=== PATIENT | female | born 1945 | race Caucasian/White ===

== ENCOUNTER 2016-06-01 14:12 | Emergency (ER) | payer OTHER, MEDICARE ==
--- NOTE | 2016-06-01 14:30 | EDPHY ---
H & P HPI/ROS: HPI CHIEF COMPLAINT: Chest pressure, shortness of breath HISTORY OF PRESENT ILLNESS: This patient very pleasant 71-year-old female, she has received tired psychologist and her is a retired psychiatrist, she presents emergency room with 2-3 days of chest discomfort he describes this as a pressure sensation in the center of her chest. Patient tells me that she has started taking Celexa on Wednesday 10 mg she has had another dose on Wednesday she has not had a dose today she thought Celexa was making her feel fatigued, had palpitations and pressure in her chest. She does tell me she has a significant family history of coronary artery disease however her herself has never had a history of coronary artery disease in she tells me she had a normal cardiac catheterization approximately 3+ years ago. She went to urgent care today for an EKG and troponin however they referred her here to the emergency room if she is having active chest pressure. She also tells me she had some pain in her left arm. She is convinced that it is her Celexa. Currently upon arrival to the emergency room she appears well nontoxic no acute distress she does complain of chest pressure like something sitting on the middle of her chest Past Medical History: "traumatic CVA at age 20", seizures for which she takes gabapentin, hormone replacement, depression. Past Surgical History: Total hysterectomy due to uterine cancer Social History: Denies daily use of drugs alcohol tobacco products, lives locally, she works as a technical writer and editor, retired from Psychology, is a psychiatrist Family History: coronary artery disease with massive PR in her father at age ? 51 ROS REVIEW OF SYSTEMS: A comprehensive 10 point review of systems is otherwise negative aside from elements mentioned in the history of present illness. Exam Constitutional appears well nontoxic, triage nursing summary reviewed, vital signs reviewed, awake/alert. Eyes normal conjunctivae and sclera, EOMI, PERRLA. HENT normal inspection, atraumatic, moist mucus membranes, no epistaxis, neck supple/ no meningismus, no raccoon eyes. Respiratory clear to auscultation bilaterally, normal breath sounds, no respiratory distress, no wheezing. Cardiovascular rate normal, regular rhythm, no murmur, no edema, distal pulses normal. Gastrointestinal soft, non-tender, no rebound, no guarding, normal bowel sounds, no distension, no pulsatile mass. Genitourinary no CVA tenderness. Musculoskeletal no midline vertebral tenderness, full range of motion, no calf swelling, no tenderness of extremities, no meningismus, good pulses, neurovascularly intact. Skin pink, warm, & dry, no rash, skin atraumatic. Neurologic awake, alert and oriented x 3, AAOx3, moves all 4 extremities equally, motor intact, sensory intact, CN II-XII intact, normal cerebellar, normal vision, normal speech. Psychiatric normal mood/affect. Heme/Lymph/Immune no lymphadenopathy. Differential diagnosis includes but is not limited to: ACS, atypical chest pain , pneumothorax, pneumonia, pulmonary embolism, aortic dissection, congestive heart failure, tumor, musculoskeletal pain, esophageal pain, GERD, peptic ulcer disease, pancreatitis, medication at adverse effect from Celexa Medical Decision Making: this patient be placed on a full youth nutritional monitor, IV will be established, will have an EKG to rule out acute coronary syndrome, chest x-ray and blood work should be given nitroglycerin to see if this improves her chest pressure full-dose aspirin. Re-evaluation: EKG interpretation by me on record in [facility] system. Impression time of EKG 1505, this is sinus rhythm rate of 71. Specifically is no acute ischemic changes specifically no ST elevation, ST depression, T-wave abnormalities prolonged intervals. Unremarkable EKG. ED x-ray chest one view: negative for acute cardiopulmonary disease. Image interpreted by myself. 1618: re-evaluation at this time the patient is resting comfortably she declined nitroglycerin. Her vitals are stable. Troponin is negative, EKG is nonischemic. D-dimer negative. Chest x-ray reviewed shows nothing acute. Given patient's risk factors her age, and family history I will bring her into [facility] observation chest pain evaluation unit. She will need serial enzymes, serial EKG and plus or minus stress test. She is agreeable for this plan. I will speak with the hospitalist service to admit her. Dr. Virgen has agreed to admit the patient. Source: Patient - Personal History Tetanus Vaccine Date: UNKNOWN Constitutional: Initial Vital Signs Temperature (C) 36.6 C 06/01/16 15:00 Heart Rate 77 06/01/16 15:00 Respiratory Rate 16 06/01/16 15:00 Blood Pressure 127/101 H 06/01/16 15:00 O2 Sat (%) 94 06/01/16 15:00 O2 Delivery Mode Room Air Allergies/Adverse Reactions: levofloxacin [From Levaquin] Allergy (Verified 06/01/16 15:52) Penicillins Allergy (Verified 06/01/16 15:52) Quinolones Allergy (Verified 06/01/16 15:52) valproic acid Allergy (Verified 06/01/16 15:52) Home Medications: Medication Instructions Recorded Estradiol [Vivelle-Dot 0.05MG (*)] 0.05 mg TD MOTH@0800 03/08/13 Carboxymethylcellulose 0.5% 1 drops EACHEYE DAILY PRN 06/01/16 [Refresh Plus Drops 0.5%] Citalopram Hydrobromide [celeXA 10 10 mg PO DAILY 06/01/16 MG] Gabapentin [Neurontin] 1,200 mg PO HS #0 tablet 06/01/16 Gabapentin [Neurontin] 600 mg PO DAILY 06/01/16 Mineral Oil/Petrolatum,White 1 ju EACHEYE HS 06/01/16 [Refresh P.m. Ointment] Medical Decision Making - Data Points Laboratory Results: Laboratory Results 06/01/16 15:00 06/01/16 15:00 06/01/16 15:00 WBC 4.42 10^3/uL (3.80-9.50) RBC 4.41 10^6/uL (4.18-5.33) Hgb 13.4 g/dL (12.6-16.3) Hct 40.8 % (38.0-47.0) MCV 92.5 fL (81.5-99.8) MCH 30.4 pg (27.9-34.1) MCHC 32.8 g/dL (32.4-36.7) RDW 13.3 % (11.5-15.2) Plt Count 236 10^3/uL (150-400) MPV 9.6 fL (8.7-11.7) Neut % (Auto) 64.1 % (39.3-74.2) Lymph % (Auto) 25.6 % (15.0-45.0) [place] % (Auto) 8.1 % (4.5-13.0) Eos % (Auto) 1.1 % (0.6-7.6) Baso % (Auto) 0.9 % (0.3-1.7) Nucleat RBC Rel Count 0.0 % (0.0-0.2) Absolute Neuts (auto) 2.83 10^3/uL (1.70-6.50) Absolute Lymphs (auto) 1.13 10^3/uL (1.00-3.00) Absolute Monos (auto) 0.36 10^3/uL (0.30-0.80) Absolute Eos (auto) 0.05 10^3/uL (0.03-0.40) Absolute Basos (auto) 0.04 10^3/uL (0.02-0.10) Absolute Nucleated RBC 0.00 10^3/uL (0-0.01) Immature Gran % 0.2 % (0.0-1.1) Immature Gran # 0.01 10^3/uL (0.00-0.10) PT 13.6 SEC (12.0-15.0) INR 1.05 (0.83-1.16) APTT 31.0 SEC (23.0-38.0) D-Dimer < 0.27 ug/mLFEU (0.00-0.50) Sodium 141 mEq/L (134-144) Potassium 3.9 mEq/L (3.5-5.2) Chloride 102 mEq/L (97-110) Carbon Dioxide 28 mEq/l (22-31) Anion Gap 11 mEq/L (8-16) BUN 17 mg/dL (7-23) Creatinine 0.7 mg/dL (0.6-1.0) Estimated GFR > 60 Glucose 103 H mg/dL (70-100) Calcium 9.5 mg/dL (8.5-10.4) Magnesium 1.9 mg/dL (1.6-2.3) Total Bilirubin 0.7 mg/dL (0.1-1.4) Conjugated Bilirubin 0.5 mg/dL (0.0-0.5) Unconjugated Bilirubin 0.2 mg/dL (0.0-1.1) AST 25 IU/L (14-46) ALT 26 IU/L (9-52) Alkaline Phosphatase 47 IU/L (38-126) Creatine Kinase 25 IU/L (0-156) CK-MB (CK-2) Fraction 0.29 ng/mL (0-3.19) Troponin I < 0.012 ng/mL (0-0.034) NT-Pro-B Natriuret Pep 161 H pg/mL (0-125) Total Protein 6.9 g/dL (6.3-8.2) Albumin 3.9 g/dL (3.5-5.0) Lipase 229.0 IU/L (23-300) Medications Given: Discontinued Medications Aspirin (Aspirin) 324 mg PO EDNOW ONE Stop: 06/01/16 14:45 Last Admin: 06/01/16 15:47 Dose: 324 mg Sodium Chloride (Ns) 1,000 mls @ 0 mls/hr IV ONCE ONE PRN Reason: As Directed Stop: 06/01/16 14:45 Last Admin: 06/01/16 15:47 Dose: 1,000 mls Departure - Departure Disposition: [facility] Inpatient Acute Clinical Impression: Chest pain at rest Condition: Fair
[2016-06-01] MEDS ORDERED: NITROGLYCERIN 0.4 MG BTL SL PRN (14:44)
[2016-06-01] MEDS ORDERED: ASPIRIN 81 MG CHEWABLE TAB PO ONE (14:44)
[2016-06-01] MEDS ORDERED: NS 1,000 ML IV ONE (14:44)
[2016-06-01 15:07] LABS: % IMMATURE GRANULYOCYTES 0.2 % (0.0-1.1); ABSOLUTE IMMATURE GRANULOCYTES 0.01 10^3/uL (0.00-0.10); ADD DIFF? NO; ADD MORPH? NO; ADD SCAN? NO; ATYPICAL LYMPHOCYTE FLAG 0 (0-99); FRAGMENT RBC FLAG 0 (0-99); HEMATOCRIT 40.8 % (38.0-47.0); HEMOGLOBIN 13.4 g/dL (12.6-16.3); LEFT SHIFT FLG 0 (0-99); LIPEMIA HEMOLYSIS FLAG 80 (0-99); MEAN CELL HEMOGLOBIN 30.4 pg (27.9-34.1); MEAN CELL HEMOGLOBIN CONCENTR. 32.8 g/dL (32.4-36.7); MEAN CELL VOLUME 92.5 fL (81.5-99.8); MEAN PLATELET VOLUME 9.6 fL (8.7-11.7); PLATELET CLUMPS FLAG 10 (0-99); PLATELET COUNT 236 10^3/uL (150-400); RED BLOOD CELL COUNT 4.41 10^6/uL (4.18-5.33); RED CELL DISTRIBUTION WIDTH 13.3 % (11.5-15.2)
--- NOTE | 2016-06-01 15:07 | CPEKG ---
Heart Rate: 71 RR Interval: 845 P-R Interval: 152 QRSD Interval: 90 QT Interval: 384 QTC Interval: 418 P Faber: 18 QRS Faber: 44 T Wave Faber: 39 EKG Severity - NORMAL ECG - EKG Impression: SINUS RHYTHM Electronically Signed By: Andre Grande 02-Jun-2016 22:48:59
[2016-06-01 15:27] LABS: INR 1.05 (0.83-1.16); PROTIME(PATIENT) 13.6 SEC (12.0-15.0)
[2016-06-01 15:39] LABS: ALANINE AMINOTRANSFERASE 26 IU/L (9-52); ALBUMIN 3.9 g/dL (3.5-5.0); ALKALINE PHOSPHATASE 47 IU/L (38-126); ANION GAP 11 mEq/L (8-16); ASPARTATE AMINOTRANSFERASE 25 IU/L (14-46); BILIRUBIN,TOTAL 0.7 mg/dL (0.1-1.4); BILIRUBIN-CONJUGATED 0.5 mg/dL (0.0-0.5); BILIRUBIN-UNCONJUGATED 0.2 mg/dL (0.0-1.1); CALCIUM 9.5 mg/dL (8.5-10.4); CARBON DIOXIDE 28 mEq/l (22-31); CHLORIDE 102 mEq/L (97-110); CREATININE 0.7 mg/dL (0.6-1.0); GLOMERULAR FILTRATION RATE > 60; GLUCOSE 103 mg/dL (70-100); MAGNESIUM 1.9 mg/dL (1.6-2.3); POTASSIUM 3.9 mEq/L (3.5-5.2); SODIUM 141 mEq/L (134-144); TOTAL PROTEIN 6.9 g/dL (6.3-8.2)
[2016-06-01] MEDS ORDERED: NITROGLYCERIN 0.4 MG BTL SL ONE (15:39)
[2016-06-01 15:51] LABS: CREATINE KINASE-MB FRACTION 0.29 ng/mL (0-3.19); TROPONIN I < 0.012 ng/mL (0-0.034)
[2016-06-01 16:01] VITALS: RESP 16; TEMP 97.9
--- NOTE | 2016-06-01 16:59 | DX ---
Portable AP chest. 06/01/2016 at 1512 History: Chest Pain Comparison study: August 03, 2014. Findings: Lungs are clear. No infiltrate, pleural effusion, pneumothorax. Heart size is normal. Impression: Negative portable chest.
[2016-06-01 19:17] VITALS: BP 143/81; PULSE 61; O2SAT 93
--- NOTE | 2016-06-01 20:26 | GHP ---
[f rep st] HISTORY AND PHYSICAL DATE OF ADMISSION: 06/01/2016 CHIEF COMPLAINT: Chest pressure. HISTORY OF PRESENT ILLNESS: Patient is a 71-year-old female with history of depression, traumatic CVA at age 20, and osteoporosis presenting with chest pressure. She started having substernal chest pressure beginning on Wednesday while at rest. She reports it being constant on and off since that time. There is no change in pressure with activity. She denies any radiation, nausea , diaphoresis, or numbness. She has had intermittent sweats. She stated that she had shortness of breath and breathlessness on Wednesday. She had tachycardia. She had tachycardia. She attributes this to a new medication, Celexa. She started taking 10 mg on Wednesday and Wednesday, and then the symptoms began. She has not taken since this time. She does report increased depression recently to the point where she is more fatigued and not even getting out of bed. She has not been exercising as much. She has been doing some walking, per her . With walking, she denies any chest pain or shortness of breath. REVIEW OF SYSTEMS: A complete 10-point review of systems, negative except as noted in HPI. PAST MEDICAL HISTORY: 1. Traumatic CVA at age 20. 2. Depression. 3. Macular degeneration. 4. Osteoporosis. 5. Osteoarthritis. 6. History of uterine cancer. PAST SURGICAL HISTORY: 1. Total hysterectomy. 2. Appendectomy. 3. Ovary resection. SOCIAL HISTORY: Lives in [place] with her . No tobacco. Occasional alcohol. No illicits. FAMILY HISTORY: Dad with WI at age 45. Mother with CHF at age 84. Paternal uncles x2 with MIs. ALLERGIES: 1. PENICILLIN. 2. LEVAQUIN. 3. VALPROIC ACID. HOME MEDICATIONS: 1. Mineral oil. 2. Refresh eye drops. 3. Citalopram 10 mg daily. 4. Estradiol transdermal. 5. Gabapentin. PHYSICAL EXAMINATION: VITAL SIGNS: Temperature 36.6, blood pressure 127/101 to 148/81, heart rate 60s, respirations 16, 94% on room air. GENERAL: Patient is lying in bed, in no acute distress. HEENT: PERRLA. EOMI. Oropharynx clear. CV: Regular rate and rhythm. No murmurs, gallops, or rubs. No reproducible chest pain and no lower extremity edema. LUNGS: Clear to auscultation bilaterally. ABDOMEN: Soft, nontender, nondistended. Positive bowel sounds. : No suprapubic or CVA tenderness. MUSCULOSKELETAL: Bilateral 5/5 upper lower extremity strength. SKIN: Warm, dry, no rash. NEUROLOGIC: 2 through 12 intact. PSYCHIATRIC: Alert oriented x3. Flat affect. LABS: Sodium 141, potassium 3.9, chloride 102, BUN 17, creatinine 0.7, glucose 103. Calcium 9.5. Magnesium 1.9. LFTs within normal. Troponin less than 0.012. BNP 161. Lipase 229. Coagulation studies within normal. D-dimer is negative. Chest x-ray was personally reviewed by me. Lungs are clear. No evidence of effusion or opacity. EKG personally reviewed by me. Normal sinus rhythm. There is some ST flattening in V2. ASSESSMENT/PLAN: 1. Chest pressure: Differential includes acute coronary syndrome versus pulmonary embolus versus gastroesophageal reflux disease versus anxiety. I feel that there is a large component of anxiety. She attributes this to Celexa ; however, has only been taking for a couple days. It can cause QT prolongation , but this is not evident on EKG here. Potassium and magnesium are within normal. Initial EKG and troponin are negative. D-dimer is negative. I will repeat EKG and troponin now. Patient wishes to go home if these are negative. I think it is reasonable for her to follow up with her PCP. If symptoms recur, she get an outpatient stress test. 2. Depression: Patient endorses severe depression at this time. She was tried on multiple medications. I will have her follow up with her PCP. 3. Osteoarthritis: Continue home medications. 4. Diet: Regular. 5. DVT prophylaxis: Ambulatory. DISPOSITION: The patient warrants observation admission, given acute chest pressure and concern for ACS, requiring serial troponins and EKGs. /[id number]/MODL MTDD
--- NOTE | 2016-06-01 20:34 | CPEKG ---
Heart Rate: 61 RR Interval: 984 P-R Interval: 176 QRSD Interval: 86 QT Interval: 404 QTC Interval: 407 P Prosper: 32 QRS Prosper: 44 T Wave Prosper: 40 EKG Severity - NORMAL ECG - EKG Impression: SINUS RHYTHM Electronically Signed By: Andre Grande 02-Jun-2016 22:48:59
[2016-06-01] MEDS ORDERED: CARBOXYMETHYLCELLULOSE 0.5% 0.4 ML DROPERETTE EACHEYE PRN (22:44)
--- NOTE | 2016-06-02 05:10 | GDS ---
[f rep st] DISCHARGE SUMMARY DISCHARGE DIAGNOSES: 1. Atypical chest pain. 2. Traumatic cerebrovascular accident at age 26. 3. Depression. 4. Macular degeneration. 5. Osteoporosis. 6. Osteoarthritis. 7. History of uterine cancer. HISTORY OF PRESENT ILLNESS: Patient is a 71-year-old female with history depression, traumatic CVA at age 26, osteoporosis presenting with substernal chest pressure since Wednesday. She denies any associated symptoms including radiation, numbness, nausea or diaphoresis. She said she had some tachycardia. She attributed this to a new medication. For full details history and physical dated today. HOSPITAL COURSE: Atypical chest pain: she had 2 negative troponins, EKG as well as a D-dimer. I suspect this may be due to anxiety. There was no evidence of arrhythmia. Electrolytes were within normal. Recommend that the patient follow up with her PCP, Dr. Boyce. If pain persists, consider an outpatient stress test. /[id number]/MODL MTDD
[2016-06-02] MEDS ORDERED: NON-FORMULARY NEW DRUG (Citalopram Hydrobromide [Celexa 10 Mg] 10 MG) PO SCH (09:00)
[2016-06-02] MEDS ORDERED: NON-FORMULARY NEW DRUG (Gabapentin [Neurontin] 600 MG) PO SCH (09:00)
[2016-06-02] MEDS ORDERED: MINERAL OIL EACHEYE SCH (21:00)
[2016-06-02] MEDS ORDERED: PETROLATUM WHITE EACHEYE SCH (21:00)
[2016-06-04] MEDS ORDERED: ESTRADIOL VIVELLE 0.05 MG PATCH TD SCH (08:00)
== END 2016-06-01 21:40 | disposition still patient (30) ==
LOC: UNDOADMOB 16:48
DX: R07.9 Chest pain, unspecified (principal); R06.02 Shortness of breath; F32.9 Major depressive disorder, single episode, unspecified; Z85.42 Personal history of malignant neoplasm of other parts of uterus

== ENCOUNTER → 2016-10-12 | Outpatient (CLI) | payer OTHER, MEDICARE | LOC: FIMAGING 11:31 | PROVIDERS: ATTEND Internal Medicine | DX: Z12.31 Encounter for screening mammogram for malignant neoplasm of breast (principal) | CPT/HCPCS: G0202 ==

== ENCOUNTER → 2017-03-15 | Outpatient (CLI) | payer OTHER, MEDICARE ==
[~2017-03-15] MED LIST: IOPAMIDOL (ISOVUE-300) 100 ML BTL ONE
[2017-03-15 15:41] LABS: ADD DIFF? NO; ADD MORPH? NO; ADD SCAN? NO; ATYPICAL LYMPHOCYTE FLAG 0 (0-99); FRAGMENT RBC FLAG 0 (0-99); HEMATOCRIT 38.5 % (38.0-47.0); HEMOGLOBIN 12.6 g/dL (12.6-16.3); LEFT SHIFT FLG 0 (0-99); LIPEMIA HEMOLYSIS FLAG 80 (0-99); MEAN CELL HEMOGLOBIN 30.3 pg (27.9-34.1); MEAN CELL HEMOGLOBIN CONCENTR. 32.7 g/dL (32.4-36.7); MEAN CELL VOLUME 92.5 fL (81.5-99.8); MEAN PLATELET VOLUME 9.6 fL (8.7-11.7); PLATELET CLUMPS FLAG 0 (0-99); PLATELET COUNT 204 10^3/uL (150-400); RED BLOOD CELL COUNT 4.16 10^6/uL (4.18-5.33); RED CELL DISTRIBUTION WIDTH 13.9 % (11.5-15.2)
[2017-03-15 16:38] LABS: ANION GAP 11 mEq/L (8-16); CALCIUM 9.4 mg/dL (8.5-10.4); CARBON DIOXIDE 30 mEq/l (22-31); CHLORIDE 102 mEq/L (97-110); CREATININE 0.7 mg/dL (0.6-1.0); GLOMERULAR FILTRATION RATE > 60; GLUCOSE 111 mg/dL (70-100); POTASSIUM 3.4 mEq/L (3.5-5.2); SODIUM 143 mEq/L (134-144)
== END ==
LOC: FIMAGING 11:46
PROVIDERS: ATTEND Internal Medicine
DX: K57.30 Diverticulosis of large intestine without perforation or abscess without bleeding (principal); N28.1 Cyst of kidney, acquired
CPT/HCPCS: 74177; Q9967

== ENCOUNTER → 2017-10-14 | Outpatient (CLI) | payer OTHER, MEDICARE | LOC: FIMAGING 10:38 | PROVIDERS: ATTEND Internal Medicine | DX: Z12.31 Encounter for screening mammogram for malignant neoplasm of breast (principal) ==

== ENCOUNTER → 2018-04-28 | Outpatient (CLI) | payer OTHER, MEDICARE | LOC: BMCIMAGING 10:03 | PROVIDERS: ATTEND Emergency Medicine | DX: M19.042 Primary osteoarthritis, left hand (principal) ==

== ENCOUNTER → 2018-07-05 | Outpatient (CLI) | payer OTHER, MEDICARE | LOC: BMCIMAGING 12:44 | PROVIDERS: ATTEND Internal Medicine | DX: I89.8 Other specified noninfective disorders of lymphatic vessels and lymph nodes (principal) ==

== ENCOUNTER → 2018-08-29 | Outpatient (CLI) | payer OTHER, MEDICARE | LOC: FCPNEURO 20:00 | PROVIDERS: ATTEND Psychiatry & Neurology Sleep Medicine | DX: G47.33 Obstructive sleep apnea (adult) (pediatric) (principal) ==

== ENCOUNTER → 2018-09-24 | Outpatient (CLI) | payer OTHER, MEDICARE | LOC: FIMAGING 08:38 ==

== ENCOUNTER → 2018-10-04 | Outpatient (CLI) | payer OTHER, MEDICARE | LOC: FIMAGING 12:49 ==

== ENCOUNTER → 2018-10-17 | Outpatient (CLI) | payer OTHER, MEDICARE | LOC: FIMAGING 11:26 ==